=== PATIENT | male | born 1990 | race Caucasian/White ===

== ENCOUNTER 2020-12-08 15:20 | Emergency (ER) | payer OTHER, SELFPAY ==
[2020-12-08 15:21] VITALS: BP 142/88; PULSE 74; RESP 18; TEMP 36.6; O2SAT 100; BMI 25.4
--- NOTE | 2020-12-08 15:27 | ED.RN ---
describes intermittent heaviness wit rapid heart rate/palpitations. weakness to left arm at times and on or 2 times had sharp pain down right arm
--- NOTE | 2020-12-08 15:28 | EKG12_ITS ---
Test Reason : CP Blood Pressure : / mmHG Vent. Rate : 066 BPM Atrial Rate : 066 BPM P-R Int : 126 ms QRS Dur : 104 ms QT Int : 386 ms P-R-T Axes : 066 057 050 degrees QTc Int : 404 ms Normal sinus rhythm Normal ECG Confirmed by DAPHNEY SANTOS, BREA ([id number]), marketing editor AB JUDD ([id number]) on 12/12/2020 9:17:49 AM Referred By: JALIL Confirmed By:BREA SHELLEY MD
--- NOTE | 2020-12-08 15:40 | EX.ED.DYSGE1 ---
HPI History of Present Illness Chief Complaint: Chest Pain Narrative Narrative: Patient is a 30-year-old male who states that he was at work today and after lunch noticed he was having bouts where his heart rate would go from mid 60s on his Fitbit up to approximate 120 and 130. He states that this would last for a few seconds and then trended back down to normal. He reports he felt mild chest discomfort when this was happening. He states it happened 3 times this afternoon and secondary to this comes in for evaluation. He denies any family history of cardiac dysrhythmia or heart disease at a young age. He denies any excessive caffeine use stimulant use or illicit drug use. He denies any history of hypertension hyperlipidemia diabetes or smoking [facility] Medical History no medical history Home Medications NK 12/08/20 [History Last Taken Unknown] Allergy/AdvReac Type Severity Reaction Status Date / Time No Known Allergies Allergy Verified 12/08/20 15:25 Surgical History (Updated 12/08/20 @ 15:26 by Abril Lazaro) History of tonsillectomy Social History Smoking Status: Never smoker [facility] ED Constitutional Constitutional ED: Denies chills or fever(s) ENT ENT ED: Denies sore throat Cardiovascular Cardiovascular: Reports chest pain, palpitations and racing heartbeat Respiratory/Chest Respiratory/Chest: Denies cough or dyspnea Gastrointestinal Gastrointestinal: Denies abdominal pain, diarrhea, nausea or vomiting Genitourinary Genitourinary ED: Denies dysuria Musculoskeletal Musculoskeletal: Denies myalgias Integumentary Denies rash Neurologic Neurologic: Denies headache(s) Hematologic/Lymphatic Hematologic/Lymphatic: Denies easy bleeding or easy bruising EXAM Physical Exam Const Vital Signs: 12/08/20 15:21 12/08/20 16:32 12/08/20 17:13 Temperature 97.8 F Temperature Source Oral Pulse Rate 74 70 97 Respiratory Rate 18 18 16 Blood Pressure 142/88 H 125/81 H 134/89 H Blood Pressure Mean 106 95 104 Pulse Ox 100 98 94 Oxygen Delivery Method Room Air Room Air Nasal Cannula Oxygen Flow Rate (L/min) 3 Positive well nourished and well developed General Appearance ED: well developed HEENT Reports moist mucous membranes Eyes PERRL and EOMs intact bilaterally Neck supple Neck Narrative: Thyroid is without nodule or goiter Resp normal respiratory effort and clear to auscultation bilaterally Cardio regular rate and regular rhythm Rate: other Other Details: Radial pulses are +2-4 bilaterally they are equal and symmetric GI normal to inspection, nondistended, normoactive bowel sounds, non-tender, non-distended and no masses Auscultation: normoactive bowel sounds Palpation: soft Extremity normal to inspection Extremity Narrative: No asymmetric edema no pitting edema negative Homans' sign bilaterally Neuro oriented x3 and CN's II-XII intact bilaterally Sensorium / Orientation: alert Motor Exam: strength 5/5 throughout Psych mental status grossly normal Skin no rashes or lesions noted MDM MDM MDM Narrative Medical decision making narrative: Patient presented to the ER with stable vitals and is low risk for cardiac disease or pulmonary embolus. His symptoms are concerning for cardiac dysrhythmia therefore he is placed on the monitor and a cardiac work-up was obtained. Blood work and imaging revealed no acute findings and while on the manager transportation planning we cut no dysrhythmia changes. Therefore at this time as patient is low risk for heart disease he is safe for discharge and will be ordered a Holter monitor secondary to the palpitations and can follow-up with cardiology for further evaluation H:0 E:0 A:0 R:1 T:0 total:1 Lab Data Attestation: I reviewed the patient's lab results. Labs: Laboratory Results - last 24 hr 12/08/20 12/08/20 15:15 15:15 WBC 6.7 RBC 5.20 Hgb 15.5 Hct 45.8 MCV 88.1 MCH 29.8 MCHC 33.8 RDW Std Deviation 38.4 RDW Coeff of Víctor 11.9 Plt Count 252 MPV 9.2 Immature Gran % (Auto) 0.400 Neut % (Auto) 43.8 L Lymph % (Auto) 43.0 H Menard % (Auto) 10.4 H Eos % (Auto) 1.5 Baso % (Auto) 0.9 Absolute Neuts (auto) 2.9 Absolute Lymphs (auto) 2.88 Nucleated RBC % 0 Sodium 139 Potassium 3.7 Chloride 104 Carbon Dioxide 28.0 Anion Gap 7 BUN 13 Creatinine 1.00 Estim Creat Clear Calc 112.95 Est GFR (MDRD) Af Amer 111 Est GFR (MDRD) Non-Af 92 BUN/Creatinine Ratio 13.0 Glucose 137 H Calcium 8.8 Magnesium 2.1 Troponin I High Sens 5 TSH 0.91 Radiography Diagnostic Testing: Clinical Impression(s) from Imaging Studies Chest X-Ray 12/08/20 15:56 IMPRESSION: Nonacute portable x-ray examination of the chest. Electronically Signed: Juan Carlos Hodge MD (Brooks) at 16:07 EDT , Service support , Discharge Plan Triage Chief Complaint: Chest Pain ED Provider: Parish Tejeda Dx/Rx/DC Orders Clinical Impression: Heart palpitations Instructions: ED Palpitations Prescriptions: No Action NK RF: 0 Primary Care Provider: Femi Mott Referrals: Femi Mott MD [Primary Care Provider] - Ava Ferris MD [STAFF PHYSICIAN] - 5-7 Days (Palpitations) Disposition Disposition: Home, Self Care
[2020-12-08] MEDS: Aspirin 81 MG TAB.CHEW 324 MG PO (15:49)
--- NOTE | 2020-12-08 15:56 | RAD_ITS ---
STUDY: X-RAY CHEST REASON FOR EXAM: Male, 30 years old. chest pain TECHNIQUE: PA and lateral views of the chest. COMPARISON: None. FINDINGS: EKG leads project over the chest. The lungs are clear and expanded. There is no demonstrated pleural abnormality. Normal size heart. Normal mediastinum and vega. Normal visualized pulmonary arteries. Normal visualized aortic arch and descending thoracic aorta. Normal visualized thoracic spine. Normal visualized ribs, clavicles, and shoulders. There is no demonstrated abnormality of the visualized soft tissue structures of the upper abdomen. RAD/Chest PA and Lateral IMPRESSION: Nonacute portable x-ray examination of the chest. Electronically Signed: Juan Carlos Hodge MD ([place]) at 16:07 EDT , Service support ,
[2020-12-08 15:57] LABS: Absolute Lymphocyte Count 2.88 X10^3/uL (0.83-4.51); Absolute Neutrophil Count 2.9 X10^3/uL (2.0-7.7); Basophil# 0.06 X10^3/uL; Basophil% 0.9 % (0-1); Eosinophils% 1.5 % (0-5); Hematocrit 45.8 % (40-54); Hemoglobin 15.5 g/dL (13.0-16.5); Lymphocyte # 2.88 X10^3/ul (0.83-4.51); Mean Corp Hgb Conc 33.8 g/dL (32-36); Mean Corpuscular Hgb 29.8 pg (27.0-32.0); Mean Corpuscular Volume 88.1 fL (80-94); Mean Platelet Vol. 9.2 fl (6.2-12.0); Monocyte% 10.4 % (0-10); NRBC Flagged by Analyzer 0 % (0-5); Neutrophil # 2.93 X10^3/uL (2.7-7.7); Neutrophil % 43.8 % (47-70); Platelet Count 252 K/mm3 (150-450); RBC Distribution Width CV 11.9 % (11.6-14.6); RBC Distribution Width SD 38.4 fl (35.1-43.9); White Blood Count 6.7 K/mm3 (4.4-11.0)
[2020-12-08 16:12] LABS: Anion Gap 7 (5-15); BUN 13 mg/dL (7-18); Calcium,Total 8.8 mg/dL (8.5-10.1); Chloride 104 mmol/L (98-107); EST Glomerular Filtration Rate 92 mL/min (>60); Est Glom Filt Rate - Afr Amer 111 mL/min (>60); Estimated Creatinine Clearance 112.95 ml/min; Glucose 137 mg/dL (74-106); Magnesium 2.1 mg/dL (1.6-2.6); Potassium 3.7 mmol/L (3.5-5.1); Sodium Level 139 mmol/L (136-145); Thyroid Stim Hormone (TSH) 0.91 uIU/mL (0.358-3.74); Troponin-I HS 5 pg/mL (3.0-78.0)
[2020-12-08 16:32] VITALS: BP 125/81; PULSE 70; RESP 18; O2SAT 98
[2020-12-08 17:13] VITALS: BP 134/89; PULSE 97; RESP 16; O2SAT 94
[2020-12-08 17:54] VITALS: BP 138/84; PULSE 74; RESP 16; O2SAT 99
== END 2020-12-08 17:55 | disposition home or self-care (01) ==
PROVIDERS: Emergency Provider Emergency Medicine; PCP Family Medicine
DX: R00.2 Palpitations (principal)
CPT/HCPCS: 71046; 80048; 83735; 84443; 84484; 85025; 93005; 99283; A4216

== ENCOUNTER → 2021-06-26 | Outpatient (CLI) | payer OTHER, SELFPAY ==
--- NOTE | 2021-06-26 12:31 | ECHOD_ITS ---
Reason For Study: CHEST PAIN Procedure This was a 2D Doppler, Color Flow transthoracic echocardiogram. The exam was of adequate technical quality. Exam performed in department. Left Ventricle Normal LV size. Left ventricular systolic function is normal. The estimated ejection fraction is 55 %. No evidence for diastolic dysfunction. No regional wall motion abnormalities noted. Right Ventricle Normal RV size. Normal systolic function. Atria Normal left atrium. Normal right atrium. No doppler evidence for ASD. Mitral Valve There is no mitral annular calcification. Normal mitral valve. Trivial mitral valve insufficiency. Tricuspid Valve Normal tricuspid valve. Trivial tricuspid valve insufficiency. Right ventricular systolic pressure estimated to be 25 mmHg. Aortic Valve Trisinus/trileaflet aortic valve. Normal aortic valve. Pulmonic Valve The pulmonic valve is not well visualized. Trivial pulmonic valve insufficiency. Great Vessels The aortic root is not well visualized. Pericardium/Pleural No pericardial effusion. MMode/2D Measurements & Calculations LVIDd: 4.3 cm IVSd: 0.93 cm LAV(MOD-sp2): 31.5 ml LVIDs: 3.1 cm LVPWd: 1.1 cm RVDd: 4.0 cm FS: 28.6 % LVAd ap4: 19.8 cm2 LVAd ap2: 33.5 cm2 SV(MOD-sp4): 24.6 ml LVLd ap4: 6.2 cm LVLd ap2: 8.7 cm EDV(MOD-sp4): 52.1 ml EDV(MOD-sp2): 109.8 ml EDV(sp4-el): 54.4 ml EDV(sp2-el): 109.6 ml LVAs ap4: 15.5 cm2 LVAs ap2: 21.2 cm2 LVLs ap4: 7.4 cm LVLs ap2: 7.3 cm ESV(MOD-sp4): 27.5 ml ESV(MOD-sp2): 52.2 ml ESV(sp4-el): 27.6 ml ESV(sp2-el): 52.6 ml EF(MOD-sp4): 47.2 % EF(MOD-sp2): 52.5 % EF(sp4-el): 49.3 % SV(MOD-sp2): 57.6 ml SV(sp4-el): 26.9 ml LA A4 area: 11.7 cm2 LA dimension(2D): 2.2 cm RA A4 area: 10.9 cm2 Doppler Measurements & Calculations MV E max arthur: 77.9 cm/sec Lat Peak E' Arthur: 14.5 cm/sec Med Peak E' Arthur: 9.6 cm/sec MV A max arthur: 72.5 cm/sec E/E' lat: 5.4 E/E' med: 8.1 MV E/A: 1.1 Ao V2 max: 110.9 cm/sec LV V1 max: 103.2 cm/sec PA V2 max: 107.9 cm/sec Ao max P.9 mmHg LV V1 max P.3 mmHg TR max arthur: 233.5 cm/sec TR max P.8 mmHg ECHO/Echo Complete Interpretation Summary Left ventricular systolic function is normal. The estimated ejection fraction is 55 %. Trivial mitral valve insufficiency. Trivial tricuspid valve insufficiency. Trivial pulmonic valve insufficiency. Right ventricular systolic pressure estimated to be 25 mmHg. No evidence for diastolic dysfunction. Ordering Physician: Kristian^Pedro^^^ Referring Physician: Femi Mott M.D. Performed By: Hilaria Mary RCS
--- NOTE | 2021-06-26 14:04 | STRESSREP ---
Stress Test Report Date: 06-26-2021 Procedure: Exercise tolerance test Indications: Chest pain; palpitations Consent: Per the patient Procedure: The patient exercised on a Fredy protocol for 14 minutes 30 seconds completing stage IV and 2 minutes and 30 seconds of stage V achieving a peak heart rate of 173 bpm (92% predicted maximal heart rate) with a peak blood pressure 172/84 mmHg and a peak MET capacity of approximately 17 MET's. The baseline ECG demonstrated sinus bradycardia. The peak exercise ECG demonstrated no obvious ECG changes. There were no cardiac dysrhythmias pretest, during exercise, or recovery. The functional capacity was considered excellent. The patient had no complaint of chest discomfort during exercise or recovery. The examination was discontinued secondary to leg fatigue. Impression: 1. Technically adequate (percent predicted maximal heart rate greater than 85%) exercise tolerance test 2. Peak exercise ECG with with no obvious ECG changes 3. There were no cardiac dysrhythmias during exercise or recovery This note was generated with [employer] software. It may contain incorrect words, spelling, and punctuation that were not noted in checking the note before signing.
== END | disposition home or self-care (01) ==
LOC: CVS 12:30
PROVIDERS: PCP Family Medicine; Visit Provider Internal Medicine Cardiovascular Disease
DX: R07.9 Chest pain, unspecified (principal); R00.2 Palpitations
CPT/HCPCS: 93017; 93306